=== PATIENT | male | born 1995 | race Caucasian/White ===

== ENCOUNTER 2021-03-14 17:23 | Emergency (ER) | payer OTHER, BC, SELFPAY ==
[2021-03-14 17:26] VITALS: BP 139/81; PULSE 62; RESP 18; TEMP 36.7; O2SAT 100
[2021-03-14 18:18] VITALS: BP 92/54; PULSE 45; RESP 14; TEMP 36.1; O2SAT 100
--- NOTE | 2021-03-14 18:42 | ED.GENADULT ---
HPI - General Adult General Chief complaint: Abdominal Pain Stated complaint: ABD pain- after lifting 100 pound bag Time Seen by Provider: 03/14/21 17:37 Source: patient, family and RN notes reviewed Mode of arrival: ambulatory Limitations: no limitations History of Present Illness HPI narrative: Patient is a 26-year-old male who presents with umbilical pain noting that he was lifting 100 pound object yesterday when he felt a burning sensation has since had a tender area in the umbilicus patient notes that he feels a soft boggy area in this location also has some mild itching patient denies similar occurrence in the past presents with his mother denies other pain or radiation of pain Related Data Home Medications Medication Instructions Recorded Confirmed No Home Medications 03/14/21 03/14/21 Allergies Allergy/AdvReac Type Severity Reaction Status Date / Time No Known Allergies Allergy Verified 03/14/21 18:51 Review of Systems Review of Systems: All systems reviewed & are unremarkable except as noted in HPI and below PMFSH Social History Social History Smoking status: Never smoker Alcohol intake: never Exam Narrative: Exam Narrative: GENERAL: Well-appearing, well-nourished, and in no acute distress. HEAD: Normocephalic, atraumatic. EYES: PERRLA and EOMI. ENT: Nares clear, no rhinorrhea or epistaxis. Mucous membranes moist. CHEST: Clear to auscultation. No respiratory distress. No wheezes rales or rhonchi HEART: Regular rate and rhythm. No murmur heard. Normal peripheral pulses. ABDOMEN: Soft, tenderness in the umbilicus no protrusion, nondistended EXTREMITIES: Normal range of motion. No edema. SKIN: Warm, dry, no rash. NEURO: No focal deficits. Alert and oriented x3. PSYCH: Normal mood and affect. Course Course Emergency Course: Patient evaluated has developed an umbilical hernia there is no protrusion given instructions on reduction minimal to no pain at this time feels comfortable with outpatient follow-up will be provided with general surgery follow-up given instructions on no straining or lifting agrees with this plan Vital Signs Vital signs: Vital Signs Temperature 98.0 F 03/14/21 17:26 Pulse Rate 62 03/14/21 17:26 Respiratory Rate 18 03/14/21 17:26 Blood Pressure 139/81 03/14/21 17:26 Pulse Oximetry 100 03/14/21 17:26 Temperature 97 F L 03/14/21 18:18 Pulse Rate 45 L 03/14/21 18:18 Respiratory Rate 14 03/14/21 18:18 Blood Pressure 92/54 L 03/14/21 18:18 Pulse Oximetry 100 03/14/21 18:18 Medical Decision Making MDM Narrative Medical decision making narrative: Patient evaluated in the emergency department will be discharged with surgical follow-up and primary care given reasons to return Vital Signs Vital Signs: Vital Signs Temperature 98.0 F 03/14/21 17:26 Pulse Rate 62 03/14/21 17:26 Respiratory Rate 18 03/14/21 17:26 Blood Pressure 139/81 03/14/21 17:26 Pulse Oximetry 100 03/14/21 17:26 Temperature 97 F L 03/14/21 18:18 Pulse Rate 45 L 03/14/21 18:18 Respiratory Rate 14 03/14/21 18:18 Blood Pressure 92/54 L 03/14/21 18:18 Pulse Oximetry 100 03/14/21 18:18 Discharge Plan Discharge Clinical Impression: Hernia, umbilical Patient Disposition: Home, Self-Care Condition: Stable Instructions: Antibiotic Form, Umbilical Hernia (ED) Additional Instructions: Follow up with your primary care doctor and general surgery tommorrow to set up for reevaluation. Go to ER for worsening pain, nausea/vomitting, fever/chills, chest pain, shortness of breath, blood in stools or urine, etc. or any other concerns. If hernia recurs lie flat and attempt to reduce if unable to do so after 20 minutes return to emergency department Take any prescribed medications as directed. Follow patient education sheet If you do not have a drug allergy to tylenol and can tolerate
[2021-03-14 18:56] VITALS: BP 128/76; PULSE 56; O2SAT 99
[2021-03-14 19:07] LABS: Basophils Absolute Auto 0.1 K/mm3 (0.0-0.1); Basophils Percent Auto 0.7 % (0.2-1.2); Eosinophils Absolute Auto 0.2 K/mm3 (0-0.3); Eosinophils Percent Auto 2.1 % (0-4.4); Hematocrit 42.2 % (42.0-52.0); Hemoglobin 14.1 g/dL (14.0-18.0); Immature Granulocyte Absolute 0.04 K/mm3 (0.00-0.031); Immature Granulocyte Percent A 0.5 % (0-0.5); Lymphocytes Absolute Auto 2.31 K/mm3 (0.9-3.2); Lymphocytes Percent Auto 30.1 % (18.3-44.2); Mean Corpuscular HGB Conc 33.4 g/dl (32-36); Mean Corpuscular Hemoglobin 29.6 pg (26-34); Mean Corpuscular Volume 88.7 fl (80-100); Monocytes Absolute Auto 0.7 K/mm3 (0.1-0.6); Monocytes Percent Auto 9.5 % (2.6-8.5); Neutrophils Absolute Auto 4.4 K/mm3 (1.3-6.7); Neutrophils Percent Auto 57.1 % (45.5-73.1); Platelet Count Result 292 k/mm3 (150-375); Red Blood Count 4.76 M/mm3 (4.6-6.20); Red Cell Distribution Width 12.4 % (11.5-14.5); White Blood Count 7.7 K/mm3 (4.5-10.0)
[2021-03-14 19:10] LABS: Add Urine Microscopic? NO; Appearance Urine Clear (Clear); Bilirubin Urine Negative (Negative); Blood Urine Negative (Negative); Color Urine Yellow (Yellow); Glucose Urine UA Negative (Negative); Ketones Urine Negative (Negative); Leukocyte Esterase Ur Negative LEU/UL (Negative); Nitrate Urine Negative (Negative); Protein Urine Negative (Negative); Specific Grav Ur 1.018 (1.001-1.035); Urobilinogen Urine Negative mg/dL (<2.0)
[2021-03-14 19:17] LABS: Alanine Aminotransferase 20 U/L (4-50); Albumin Level 4.8 g/dL (3.5-5.1); Alkaline Phosphatase 45 U/L (38-126); Anion Gap 7 mmol/L (8-16); Aspartate Amino Transferase 38 U/L (17-59); Bilirubin,Total 0.6 mg/dL (0.2-1.3); Blood Urea Nitrogen 14 mg/dL (9-20); Calcium 9.7 mg/dL (8.4-10.2); Carbon Dioxide 29 mmol/L (22-30); Chloride 104 mmol/L (98-107); Estimated CRCL calculation 129 ml/min; Estimated Glomerular Filt Rate > 60; Glucose 82 mg/dL (75-110); Lipase 42 U/L (23-300); Potassium 3.8 mmol/L (3.4-5.0); Sodium 140 mmol/L (137-145)
== END 2021-03-14 19:14 | disposition home or self-care (01) ==
PROVIDERS: Emergency Provider Emergency Medicine; PCP Family Medicine
DX: K42.9 Umbilical hernia without obstruction or gangrene (principal)
CPT/HCPCS: 36415; 80053; 81003; 83690; 85025; 99283